=== PATIENT | male | born 1945 | race Native Hawaiian/Other Pacific Islander ===

== ENCOUNTER 2016-11-11 08:36 | Outpatient (CLI) | payer OTHER, MEDICARE | END 2016-11-11 19:32 | disposition home or self-care (01) | LOC: RAD 08:36 | DX: G83.13 Monoplegia of lower limb affecting right nondominant side (principal) ==

== ENCOUNTER 2023-02-28 09:42 | Outpatient (CLI) | payer OTHER, MEDICARE ==
[2023-02-28 10:02] LABS: PLATELET COUNT 162 K/uL (142-355)
[2023-02-28 10:35] LABS: POTASSIUM 3.7 mmol/L (3.6-5.2)
== END 2023-02-28 20:50 | disposition home or self-care (01) ==
LOC: LAB 09:42
PROVIDERS: ATTEND Nurse Practitioner
DX: I10 Essential (primary) hypertension (principal); Z12.5 Encounter for screening for malignant neoplasm of prostate; E78.2 Mixed hyperlipidemia
CPT/HCPCS: 36415; 80053; 80061; 84153; 84439; 84443; 85027